=== PATIENT | male | born 1990 | race Caucasian/White ===

== ENCOUNTER 2022-01-24 14:25 | Emergency (ER) | payer OTHER, BC ==
[2022-01-24] MEDS ORDERED: Ketorolac 60 MG/2 ML SDV IM ONE (15:42)
[2022-01-24] MEDS ORDERED: Orphenadrine 100 MG Tab.ER PO ONE (15:42)
[2022-01-24] MEDS ORDERED: Acetaminophen/oxyCODONE 325-5 MG Tab PO ONE (16:34)
== END 2022-01-24 17:17 | disposition home or self-care (01) ==
LOC: JD.ED 14:25
DX: M54.41 Lumbago with sciatica, right side (principal); M54.42 Lumbago with sciatica, left side; Z88.8 Allergy status to other drugs, medicaments and biological substances; Z79.899 Other long term (current) drug therapy
CPT/HCPCS: 96372; 99283; A9270-GY; J1885